=== PATIENT | female | born 1945 | race Caucasian/White ===

== ENCOUNTER 2018-03-10 07:29 | Observation (INO) ==
[2018-03-10 08:25] LABS: Basophils % 0.7 %; Eosinophils # 0.1 K/mcL (0.0-0.6); Eosinophils % 1.1 %; Hematocrit 41.5 % (35.3-44.9); Hemoglobin 14.3 g/dL (11.5-15.4); Immature Granulocytes % 0.2 % (0-4); Lymphocytes # 1.9 K/mcL (0.6-4.6); Mean Corpuscular HGB Conc 34.5 g/dL (31.6-35.5); Mean Corpuscular Hemoglobin 30.4 pg (28.0-33.3); Mean Corpuscular Volume 88.3 fL (83.0-100.0); Mean Platelet Volume 11.1 fL (9.4-12.4); Monocytes # 0.7 K/mcL (0.0-1.3); Monocytes % 11.8 %; Neutrophils # 3.4 K/mcL (1.6-8.9); Platelet Count 286 K/mcL (140-400); Red Cell Distribution Width 12.6 % (11.5-14.5); Segmented Neutrophils % 55.2 %
[2018-03-10 08:33] LABS: Activated Partial Thrombo Time 36.9 Seconds (26.0-36.0)
[2018-03-10] MEDS ORDERED: Aspirin 325 MG TABLET PO ONE (08:55)
--- NOTE | 2018-03-10 08:56 | Emergency Department Note ---
Disposition Clinical Impression: Chest pain Qualifiers: Chest pain type: precordial pain Qualified Code(s): R07.2 - Precordial pain Disposition: Admitted As Inpatient Condition: Fair Referrals: Shukri San DO [Primary Care Provider] - Extremity Problem HPI - General Chief complaint: ED General Medical Stated complaint: Left leg pain/Palpitations Time Seen by Provider: 03/10/18 08:32 Source: patient Mode of arrival: private vehicle Limitations: no limitations Nursing Notes Reviewed: Yes Vital Signs Reviewed: Yes - History of Present Illness Pt Subjective Complaint: joint pain, other (chest pain and "fluttering") Consistency: constant Injury Location: left, lower extremity, other (left arm, left upper back and left side of neck) Pain Scale: 8 Quality: aching, crushing, sharp Radiation: proximal (from left knee up the left side of the body) Improves with: rest Worsens with: walking, use Associated symptoms: Reports: chest pain (episode on Tuesday while walking up stairs - improved with rest, then returned yesterday. Has intermittent episodes of chest pain.), back pain, bowel/bladder symptoms (diarrhea x 2 days - "2 or 3 times a day"), arthralgias. Denies: shortness of breath, abdominal pain, fever , rash, change in appearance, swelling, redness Context: other (Hx of CAD, Hx of OA) - Related Data Home Medications Medication Instructions Recorded Confirmed FLUoxetine HCl [Sarafem] 10 mg PO HS 03/25/15 01/20/18 Metoprolol [Lopressor] 50 mg PO HS 03/25/15 01/20/18 Meloxicam [Mobic] 15 mg PO DAILY 12/14/15 01/20/18 Oxybutynin Chloride [Ditropan Xl] 5 mg PO DAILY 12/14/15 01/20/18 hydroCHLOROthiazide 12.5 mg PO DAILY 12/14/15 01/20/18 [Hydrochlorothiazide] Levothyroxine [Synthroid] 50 mcg PO 0601/18/18 01/20/18 Metoprolol Tartrate [Lopressor] 25 mg PO QAM 01/18/18 01/20/18 Multivitamin [One Daily 1 tab PO DAILY 01/18/18 01/20/18 Multivitamin] Oxybutynin Chloride [Ditropan Xl] 5 mg PO DAILY 01/18/18 01/20/18 Ranitidine HCl [Heartburn Relief] 150 mg PO BID 01/18/18 01/20/18 Atorvastatin Calcium [Lipitor] 80 mg PO HS 01/19/18 01/20/18 Clopidogrel [Plavix] 75 mg PO DAILY 01/19/18 01/20/18 traZODone [TraZODone] 50 mg PO HS 01/19/18 01/20/18 Allergies Allergy/AdvReac Type Severity Reaction Status Date / Time Cefaclor [From Ceclor] AdvReac Mild Rash Verified 04/02/17 23:10 All systems ED: reviewed and negative except as stated. Review of Systems: As Per HPI Constitutional: Denies: fever, chills, weakness, weight change, night sweats Cardiovascular: Reports: as per HPI, chest pain, palpitations, dyspnea on exertion ("Only on Tuesday while walking up the stairs and had the chest pain "). Denies: orthopnea, edema, syncope Respiratory: Denies: cough, dyspnea, wheezes, hemoptysis Gastrointestinal: Reports: as per HPI, diarrhea. Denies: abdominal pain, nausea , vomiting Genitourinary: Denies: dysuria Musculoskeletal: Reports: as per HPI, back pain, neck pain, arthralgia. Denies : joint swelling Neurological: Denies: headache, weakness, numbness, paresthesias, confusion, vertigo Endocrine: Reports: fatigue Hematological/Lymphatic: Denies: easy bleeding, easy bruising Past Medical History - Past Medical History Attestation: Yes The following information was validated with the patient. Source: patient Medical history: Reports: arthritis, dementia, GERD, hyperlipidemia, hypertension, myocardial infarction, RA, thyroid disease Surgical history: Reports: cataract, hysterectomy Psychiatric history: Reports: no psych history RADIO OPERATOR history: Reports: no RADIO OPERATOR history - Social History Smoking Status: Never smoker Smokeless Tobacco Status: No Alcohol use: Reports: none Drug use: Reports: none Physical Exam - General Limitations: no limitations General appearance: alert, in no apparent distress - Head Head exam: atraumatic, normocephalic, normal inspection - Eye Eye exam: Present: normal appearance, PERRL. Absent: scleral icterus, conjunctival injection, periorbital swelling - ENT ENT exam: mucous membranes moist - Neck Neck exam: Present: normal inspection, full ROM, trachea midline. Absent: tenderness - Chest Chest inspection: Present: normal inspection, symmetric chest wall rise. Absent : tenderness - Respiratory Respiratory exam: Present: normal lung sounds bilaterally. Absent: respiratory distress - Cardiovascular Cardiovascular exam: Present: regular rate, normal rhythm - Abdominal Exam Abdominal exam: Present: soft, Non-Tender. Absent: distention, mass, pulsatile mass - Extremities Exam Extremities exam: Present: normal inspection, full ROM, normal capillary refill. Absent: calf tenderness - Expanded Lower Extremity Exam Hip/Pelvis exam: Present: full ROM. Absent: tenderness, swelling Upper leg exam: Absent: tenderness Knee exam: Present: normal inspection, full ROM, tenderness, knee extension intact. Absent: swelling, ecchymosis, deformity, erythema Lower leg exam: Absent: tenderness, ecchymosis, erythema, Homans' sign Ankle exam: Present: normal inspection, full ROM. Absent: tenderness, swelling Foot/toe exam: Present: normal inspection, full ROM. Absent: tenderness, swelling Neurovascular/Tendon exam: Present: normal capillary refill, normal fine/light touch. Absent: pulse deficit, motor deficit, sensory deficit, tendon deficit, extremity cold to touch, pallor, foot drop, significant pain with passive ROM of distal joint Gait: antalgic - Back Exam Back exam: Present: normal inspection. Absent: CVA tenderness (R), CVA tenderness (L) - Neurological Exam Neurological exam: Present: alert, oriented X3, CN II-XII intact, normal gait. Absent: motor sensory deficit - Psychiatric Psychiatric exam: Present: normal affect, normal mood - Skin Skin exam: Present: warm, dry, intact, normal color Course Course Narrative: Patient presents from home for evaluation of polyarthralgia and palpitations with episodic exertional chest pain. Her EKG appears to be unchanged compared to previous. She does have history of coronary artery disease with two stents. She has had no recent illnesses and is afebrile. She describes her arthralgia as similar to her frequent flareups of arthritis pain. Her primary reason for coming to the ER was for evaluation of her chest pain and palpitations. EKG is unchanged. Labs are essentially normal with the exception of hyponatremia which is slightly better than her recent values. Chest x-ray is normal. She is currently pain-free. Vitals are stable. Hospitalist was contacted for admission. Patient has been accepted. Vital Signs Temperature 98.3 F 03/10/18 07:42 Pulse Rate 74 03/10/18 07:42 Respiratory Rate 16 03/10/18 07:42 Blood Pressure 157/91 03/10/18 07:42 O2 Sat by Pulse Oximetry 96 03/10/18 07:42 Temperature 98.3 F 03/10/18 07:42 Pulse Rate 74 03/10/18 07:42 Respiratory Rate 16 03/10/18 07:42 Blood Pressure 157/91 03/10/18 07:42 O2 Sat by Pulse Oximetry 96 03/10/18 07:42 Oxygen Delivery Oxygen Delivery Room Air Extremity Problem, Nontraumati - Medical Records Medical records reviewed: Yes I reviewed the patient's medical records. - Lab Data Lab results reviewed: Yes I reviewed the patient's lab results. Lab results narrative: Laboratory Last Values WBC 6.1 K/mcL (4.3-11.1) 03/10/18 08:10 RBC 4.70 M/mcL (3.82-4.97) 03/10/18 08:10 Hgb 14.3 g/dL (11.5-15.4) 03/10/18 08:10 Hct 41.5 % (35.3-44.9) 03/10/18 08:10 MCV 88.3 fL (83.0-100.0) 03/10/18 08:10 MCH 30.4 pg (28.0-33.3) 03/10/18 08:10 MCHC 34.5 g/dL (31.6-35.5) 03/10/18 08:10 RDW 12.6 % (11.5-14.5) 03/10/18 08:10 Plt Count 286 K/mcL (140-400) 03/10/18 08:10 MPV 11.1 fL (9.4-12.4) 03/10/18 08:10 Immature Gran % 0.2 % (0-4) 03/10/18 08:10 Seg Neutrophils % 55.2 % 03/10/18 08:10 Lymphocytes % 31.0 % 03/10/18 08:10 Monocytes % 11.8 % 03/10/18 08:10 Eosinophils % 1.1 % 03/10/18 08:10 Basophils % 0.7 % 03/10/18 08:10 Neutrophils # 3.4 K/mcL (1.6-8.9) 03/10/18 08:10 Lymphocytes # 1.9 K/mcL (0.6-4.6) 03/10/18 08:10 Monocytes # 0.7 K/mcL (0.0-1.3) 03/10/18 08:10 Eosinophils # 0.1 K/mcL (0.0-0.6) 03/10/18 08:10 Basophils # 0.0 K/mcL (0.0-0.2) 03/10/18 08:10 PT 11.0 Seconds (9.4-12.1) 03/10/18 08:10 INR 1.0 03/10/18 08:10 APTT 36.9 Seconds (26.0-36.0) H 03/10/18 08:10 Sodium 130 mEq/L (136-145) L 03/10/18 08:10 Potassium 3.6 mEq/L (3.5-5.1) 03/10/18 08:10 Chloride 95 mEq/L (98-107) L 03/10/18 08:10 Carbon Dioxide 28 mEq/L (23-29) 03/10/18 08:10 BUN 10 mg/dL (8-23) 03/10/18 08:10 Creatinine 0.92 mg/dL (0.60-1.20) 03/10/18 08:10 Est GFR ( Amer) > 60 (> 60) 03/10/18 08:10 Est GFR (Non-Af Amer) > 60 (> 60) 03/10/18 08:10 BUN/Creatinine Ratio 11 (6-26) 03/10/18 08:10 Glucose 95 mg/dL (70-105) 03/10/18 08:10 Calculated Osmolality 269 (280-300) L 03/10/18 08:10 Calcium 10.0 mg/dL (8.6-10.3) 03/10/18 08:10 Troponin I < 0.03 ng/mL (< 0.04) 03/10/18 08:10 Urine Color Yellow (Yellow) 03/10/18 09:17 Urine Clarity Clear (Clear) 03/10/18 09:17 Urine pH 7.5 pH Units (5.0-8.0) 03/10/18 09:17 Ur Specific [place] 1.009 (1.010-1.025) L 03/10/18 09:17 Urine Protein Negative mg/dL (Neg-Trace) 03/10/18 09:17 Urine Glucose (UA) Normal mg/dL (Normal) 03/10/18 09:17 Urine Ketones Negative mg/dL (Negative) 03/10/18 09:17 Urine Blood Negative (Negative) 03/10/18 09:17 Urine Nitrite Negative (Negative) 03/10/18 09:17 Urine Bilirubin Negative (Negative) 03/10/18 09:17 Urine Urobilinogen Normal mg/dL (Normal) 03/10/18 09:17 Ur Leukocyte Esterase Negative (Negative) 03/10/18 09:17 Ur Culture Indicated? NO (NO) 03/10/18 09:17 Result diagrams: 03/10/18 08:10 Lab Results 03/10/18 03/10/18 Range/Units 08:10 08:10 WBC 6.1 (4.3-11.1) K/mcL RBC 4.70 (3.82-4.97) M/mcL Hgb 14.3 (11.5-15.4) g/dL Hct 41.5 (35.3-44.9) % MCV 88.3 (83.0-100.0) fL MCH 30.4 (28.0-33.3) pg MCHC 34.5 (31.6-35.5) g/dL RDW 12.6 (11.5-14.5) % Plt Count 286 (140-400) K/mcL MPV 11.1 (9.4-12.4) fL Immature Gran % 0.2 (0-4) % Seg Neutrophils % 55.2 % Lymphocytes % 31.0 % Monocytes % 11.8 % Eosinophils % 1.1 % Basophils % 0.7 % Neutrophils # 3.4 (1.6-8.9) K/mcL Lymphocytes # 1.9 (0.6-4.6) K/mcL Monocytes # 0.7 (0.0-1.3) K/mcL Eosinophils # 0.1 (0.0-0.6) K/mcL Basophils # 0.0 (0.0-0.2) K/mcL PT 11.0 (9.4-12.1) Seconds INR 1.0 APTT 36.9 H (26.0-36.0) Seconds - Radiology Data Radiology results reviewed: Yes I reviewed the patient's radiology results. Chest X-Ray 03/10/18 07:44 IMPRESSION: No acute cardiopulmonary disease. D/ / 03/10/2018 08:45:55 [facility] Interpreting Provider: Daniel Cody MD - EKG Data EKG attestation: Yes I reviewed and interpreted this EKG. EKG shows normal: sinus rhythm Rate: normal Rhythm: NSR T wave inversions noted in: III, aVR, aVF, v1 When compared to previous EKG there are: no significant changes Interpretation: unchanged when compared to prior tracing (date), nonspecific ST- T wave changes
[2018-03-10 09:01] LABS: Troponin I < 0.03 ng/mL (< 0.04)
[2018-03-10 09:22] LABS: BUN/Creatinine Ratio 11 (6-26); Blood Urea Nitrogen 10 mg/dL (8-23); Carbon Dioxide 28 mEq/L (23-29); Chloride 95 mEq/L (98-107); Glucose 95 mg/dL (70-105); Osmolality,Calculated 269 (280-300); Potassium 3.6 mEq/L (3.5-5.1); Sodium 130 mEq/L (136-145); eGFR For Non-African Americans > 60 (> 60)
[2018-03-10 09:29] LABS: Bilirubin,Urine Negative (Negative); Blood,Urine Negative (Negative); Clarity,Urine Clear (Clear); Color,Urine Yellow (Yellow); Glucose,Urine (UA) Normal (Normal); Ketones,Urine Negative (Negative); Leukocyte Esterase,Urine Negative (Negative); Nitrite,Urine Negative (Negative); PH,Urine 7.5 pH Units (5.0-8.0); Protein,Urine Negative (Neg-Trace); Specific Gravity,Urine 1.009 (1.010-1.025); Urobilinogen,Urine Normal (Normal)
--- NOTE | 2018-03-10 12:12 | Emergency Department Note ---
Disposition Clinical Impression: Chest pain Qualifiers: Chest pain type: precordial pain Qualified Code(s): R07.2 - Precordial pain Disposition: Admitted As Inpatient Condition: Fair General Adult HPI - General Chief complaint: ED General Medical Stated complaint: Left leg pain/Palpitations Time Seen by Provider: 03/10/18 08:32 Source: patient Mode of arrival: private vehicle Limitations: no limitations - History of Present Illness Pain Scale: 8 - Related Data Home Medications Medication Instructions Recorded Confirmed FLUoxetine HCl [Sarafem] 10 mg PO HS 03/25/15 03/10/18 hydroCHLOROthiazide 12.5 mg PO DAILY 12/14/15 03/10/18 [Hydrochlorothiazide] Levothyroxine [Synthroid] [place] [address]/18/18 03/10/18 Multivitamin [One Daily 1 tab PO DAILY 01/18/18 03/10/18 Multivitamin] Oxybutynin Chloride [Ditropan Xl] 5 mg PO DAILY 01/18/18 03/10/18 Ranitidine HCl [Heartburn Relief] 150 mg PO BID 01/18/18 03/10/18 Atorvastatin Calcium [Lipitor] 80 mg PO HS 01/19/18 03/10/18 Clopidogrel [Plavix] 75 mg PO DAILY 01/19/18 03/10/18 traZODone [TraZODone] 50 mg PO HS 01/19/18 03/10/18 Acetaminophen [Tylenol] 500 mg PO BID 03/10/18 03/10/18 Albuterol Sulfate [Ventolin Hfa] 2 puff IH Q4-6H PRN 03/10/18 03/10/18 Aspirin [Adult Aspirin Regimen] 81 mg PO HS 03/10/18 03/10/18 Donepezil [Aricept] 5 mg PO HS 03/10/18 03/10/18 FLUoxetine HCl [PROzac] 20 mg PO QAM 03/10/18 03/10/18 Allergies Allergy/AdvReac Type Severity Reaction Status Date / Time Cefaclor [From Ceclor] AdvReac Mild Rash Verified 03/10/18 12:01 Constitutional: Denies: fever, chills, weakness, weight change, night sweats Cardiovascular: Reports: as per HPI, chest pain, palpitations, dyspnea on exertion ("Only on Tuesday while walking up the stairs and had the chest pain "). Denies: orthopnea, edema, syncope Respiratory: Denies: cough, dyspnea, wheezes, hemoptysis Gastrointestinal: Reports: as per HPI, diarrhea. Denies: abdominal pain, nausea , vomiting Genitourinary: Denies: dysuria Musculoskeletal: Reports: as per HPI, back pain, neck pain, arthralgia. Denies : joint swelling Neurological: Denies: headache, weakness, numbness, paresthesias, confusion, vertigo Endocrine: Reports: fatigue Hematological/Lymphatic: Denies: easy bleeding, easy bruising Past Medical History - Past Medical History Medical history: Reports: arthritis, dementia, GERD, hyperlipidemia, hypertension, myocardial infarction, RA, thyroid disease Surgical history: Reports: cataract, hysterectomy Psychiatric history: Reports: no psych history TRAIN MASTER history: Reports: no TRAIN MASTER history - Social History Smoking Status: Never smoker Smokeless Tobacco Status: No Alcohol use: Reports: none Drug use: Reports: none Physical Exam - General Limitations: no limitations General appearance: alert, in no apparent distress Course Vital Signs Temperature 98.3 F 03/10/18 07:42 Pulse Rate 74 03/10/18 07:42 Respiratory Rate 16 03/10/18 07:42 Blood Pressure 157/91 03/10/18 07:42 O2 Sat by Pulse Oximetry 96 03/10/18 07:42 Temperature 98.3 F 03/10/18 07:42 Pulse Rate 71 03/10/18 09:35 Respiratory Rate 18 03/10/18 09:35 Blood Pressure 148/81 03/10/18 09:35 O2 Sat by Pulse Oximetry 98 03/10/18 09:35 Oxygen Delivery Oxygen Delivery Room Air Medical Decision Making - Lab Data Result diagrams: 03/10/18 08:10 03/10/18 08:10 Lab Results 03/10/18 03/10/18 03/10/18 Range/Units 08:10 08:10 08:10 WBC 6.1 (4.3-11.1) K/mcL RBC 4.70 (3.82-4.97) M/mcL Hgb 14.3 (11.5-15.4) g/dL Hct 41.5 (35.3-44.9) % MCV 88.3 (83.0-100.0) fL MCH 30.4 (28.0-33.3) pg MCHC 34.5 (31.6-35.5) g/dL RDW 12.6 (11.5-14.5) % Plt Count 286 (140-400) K/mcL MPV 11.1 (9.4-12.4) fL Immature Gran % 0.2 (0-4) % Seg Neutrophils % 55.2 % Lymphocytes % 31.0 % Monocytes % 11.8 % Eosinophils % 1.1 % Basophils % 0.7 % Neutrophils # 3.4 (1.6-8.9) K/mcL Lymphocytes # 1.9 (0.6-4.6) K/mcL Monocytes # 0.7 (0.0-1.3) K/mcL Eosinophils # 0.1 (0.0-0.6) K/mcL Basophils # 0.0 (0.0-0.2) K/mcL PT 11.0 (9.4-12.1) Seconds INR 1.0 APTT 36.9 H (26.0-36.0) Seconds Sodium 130 L (136-145) mEq/L Potassium 3.6 (3.5-5.1) mEq/L Chloride 95 L (98-107) mEq/L Carbon Dioxide 28 (23-29) mEq/L BUN 10 (8-23) mg/dL Creatinine 0.92 (0.60-1.20) mg/dL Est GFR ( Amer) > 60 (> 60) Est GFR (Non-Af Amer) > 60 (> 60) BUN/Creatinine Ratio 11 (6-26) Glucose 95 (70-105) mg/dL Calculated Osmolality 269 L (280-300) Calcium 10.0 (8.6-10.3) mg/dL Troponin I < 0.03 (< 0.04) ng/mL Urine Color (Yellow) Urine Clarity (Clear) Urine pH (5.0-8.0) pH Units Ur Specific [place] (1.010-1.025) Urine Protein (Neg-Trace) mg/dL Urine Glucose (UA) (Normal) mg/dL Urine Ketones (Negative) mg/dL Urine Blood (Negative) Urine Nitrite (Negative) Urine Bilirubin (Negative) Urine Urobilinogen (Normal) mg/dL Ur Leukocyte Esterase (Negative) Ur Culture Indicated? (NO) 03/10/18 Range/Units 09:17 WBC (4.3-11.1) K/mcL RBC (3.82-4.97) M/mcL Hgb (11.5-15.4) g/dL Hct (35.3-44.9) % MCV (83.0-100.0) fL MCH (28.0-33.3) pg MCHC (31.6-35.5) g/dL RDW (11.5-14.5) % Plt Count (140-400) K/mcL MPV (9.4-12.4) fL Immature Gran % (0-4) % Seg Neutrophils % % Lymphocytes % % Monocytes % % Eosinophils % % Basophils % % Neutrophils # (1.6-8.9) K/mcL Lymphocytes # (0.6-4.6) K/mcL Monocytes # (0.0-1.3) K/mcL Eosinophils # (0.0-0.6) K/mcL Basophils # (0.0-0.2) K/mcL PT (9.4-12.1) Seconds INR APTT (26.0-36.0) Seconds Sodium (136-145) mEq/L Potassium (3.5-5.1) mEq/L Chloride (98-107) mEq/L Carbon Dioxide (23-29) mEq/L BUN (8-23) mg/dL Creatinine (0.60-1.20) mg/dL Est GFR ( Amer) (> 60) Est GFR (Non-Af Amer) (> 60) BUN/Creatinine Ratio (6-26) Glucose (70-105) mg/dL Calculated Osmolality (280-300) Calcium (8.6-10.3) mg/dL Troponin I (< 0.04) ng/mL Urine Color Yellow (Yellow) Urine Clarity Clear (Clear) Urine pH 7.5 (5.0-8.0) pH Units Ur Specific [place] 1.009 L (1.010-1.025) Urine Protein Negative (Neg-Trace) mg/dL Urine Glucose (UA) Normal (Normal) mg/dL Urine Ketones Negative (Negative) mg/dL Urine Blood Negative (Negative) Urine Nitrite Negative (Negative) Urine Bilirubin Negative (Negative) Urine Urobilinogen Normal (Normal) mg/dL Ur Leukocyte Esterase Negative (Negative) Ur Culture Indicated? NO (NO) Attestation Statement - Attestation Attestation: I examined this patient and my medical decision-making was reviewed with the TIME MOTION ANALYST/PA/Advanced Practice Nurse/Resident Physician. I agree with the documented findings, disposition and treatment plan as described except to the extent set forth below. I did see the patient and spoke with her and the concern is her chest discomfort. She also has palpitations. Does have some EKG changes which were present on the previous EKG. Will be admitted. The patient would like to be admitted and is comfortable and appreciative of this approach. Will be followed closely and monitored here in the hospital. At this point she is bright and alert and in no distress. [id number]
[2018-03-10] MEDS ORDERED: Naloxone 0.4 MG/ML INJ IVP PRN (15:49)
--- NOTE | 2018-03-10 16:10 | Internal Med History&Physical ---
Date of Encounter: 03/10/18 Time of Encounter: 15:30 Internal Medicine - H&P: HPI Chief complaint: Chest pain Admitted From: Emergency Dept Plans for Post Hospital Care: Home History of present illness: Ms. Reveles is a 72 year old female patient with a history of coronary artery disease who and prior PCI with stents who presented to the ER with complaints of chest pain. Pain has been going on for 2 weeks and progressively worsening. She reports that the pain usually comes on when she is exerting or walking. It did not resolve spontaneously. Pain is located in the lower center part of her chest in the substernal space and is like a pressure sensation. She does have some shortness of breath associated with it. No orthopnea. She gets occasional PND. No nausea or vomiting. No abdominal pain. She reports that her last stent was 2-3 years back. She has been on Plavix. 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 So she decided to come to the ER today. She did not have chest pain by the time she came to the ER. Patient reports that she has a history of arthritis and has been having a flareup of arthritis everywhere including her small joints and her spine. She was not diagnosed previously with any specific kind of arthritis. She takes Tylenol for her pain. Past Med Surg Social Fam HX - Past Medical History Attestation: Yes The following information was validated with the patient. Source: patient Medical history: arthritis, dementia, GERD, hyperlipidemia, hypertension, myocardial infarction, RA, thyroid disease Additional medical history: sleep apnea, CO last 2011 Psychiatric history: no psych history - Past Surgical History Surgical History: cataract, hysterectomy Additional surgical history: cardiac stent x4 - Social History Smoking Status: Never smoker Smokeless Tobacco Status: No Alcohol use: none Drug use: none - Family History Mother Adopted: No Living Status: Hx Family Cardiac Disorders: Yes Internal Medicine - H&P: Meds FLUoxetine HCl [Sarafem] 10 mg PO HS 03/25/15 [History] hydroCHLOROthiazide [Hydrochlorothiazide] 12.5 mg PO DAILY 12/14/15 [History] Levothyroxine [Synthroid] 50 mcg PO 0630 01/18/18 [History] Multivitamin [One Daily Multivitamin] 1 tab PO DAILY 01/18/18 [History] Oxybutynin Chloride [Ditropan Xl] 5 mg PO DAILY 01/18/18 [History] Ranitidine HCl [Heartburn Relief] 150 mg PO BID 01/18/18 [History] Atorvastatin Calcium [Lipitor] 80 mg PO HS 01/19/18 [History] Clopidogrel [Plavix] 75 mg PO DAILY 01/19/18 [History] traZODone [TraZODone] 50 mg PO HS 01/19/18 [History] Acetaminophen [Tylenol] 500 mg PO BID 03/10/18 [History] Albuterol Sulfate [Ventolin Hfa] 2 puff IH Q4-6H PRN 03/10/18 [History] Aspirin [Adult Aspirin Regimen] 81 mg PO HS 03/10/18 [History] Donepezil [Aricept] 5 mg PO HS 03/10/18 [History] FLUoxetine HCl [PROzac] 20 mg PO QAM 03/10/18 [History] 3 Allergy/AdvReac Type Severity Reaction Status Date / Time [facility] AdvReac Mild Rash Verified 03/10/18 12:01 All Systems PM: A 10-system review of systems was performed and is negative for pertinent findings except as documented above in the HPI. - Constitutional Constitutional: no chills, no fever(s), no night sweats - EENT Eyes: no change in vision, no discharge, no pain, no photophobia Ears: no ear discharge, no ear pain, no tinnitus Nose, mouth and throat: no dysphagia, no nasal discharge, no neck pain, no sore throat - Cardiovascular Cardiovascular ROS IM: chest pain, dyspnea, edema, no diaphoresis, no lightheadedness, no palpitations, no syncope - Respiratory Respiratory: no cough, no dyspnea, no wheezing, no excessive phlegm production - Gastrointestinal Gastrointestinal: no abdominal pain, no diarrhea, no hematemesis, no hematochezia, no melena, no nausea, no vomiting - Genitourinary Genitourinary: no change in urinary stream, no dysuria, no flank pain, no hematuria - Musculoskeletal Musculoskeletal ROS IM: arthralgias, no numbness, no tingling - Constitutional Vitals: Temp Pulse Resp BP Pulse Ox 98.3 F 76 15 123/71 96 03/10/18 15:54 03/10/18 15:54 03/10/18 15:54 03/10/18 15:54 03/10/18 15:54 General appearance: Present: cooperative, mild distress, A&O X 3, answers questions appropriately Exam: . - Neck Neck exam general surgery: Present: supple, trachea midline. Absent: lymphadenopathy - Respiratory Respiratory exam: Present: CTAB. Absent: accessory muscle use, rales, rhonchi, wheezes - Cardiovascular Cardiovascular exam: Present: RRR, +S1, +S2. Absent: diastolic murmur, gallop, rubs, systolic murmur Additional comments: Central chest wall tenderness present - GI/Abdominal GI/Abdominal exam: Present: normal bowel sounds, soft, no peritoneal signs. Absent: distended, tenderness - Extremities Exam Extremities exam: Present: warm, radial pulses palpable and symmetrical. Absent : calf tenderness, cyanotic, pedal edema - Neurological Exam Neurological exam: Present: CN II-XII intact, oriented X3, no focal deficits. Absent: facial droop, speech deficit - Skin Skin exam: Present: dry, intact Internal Med - H&P Results - Labs CBC & Chem 7: 03/10/18 08:10 03/10/18 08:10 - Assessment and plan (1) Chest pain Current Visit: Yes Status: Acute Assessment and plan: Issue and having chest pain in the central lower substernal space. Reproducible with palpation. Patient does have a history of coronary artery disease and is at risk for ACS. Will monitor with telemetry. EKG shows Q waves in septal leads suggestive of prior CO. No acute ST segment changes. Troponins have been negative so far. Will trend troponins and if they are negative scheduled patient for stress test in morning. Check lipid profile. Continue home medications including Plavix. Qualifiers: Chest pain type: intercostal pain Qualified Code(s): R07.82 - Intercostal pain (2) Coronary artery disease Current Visit: Yes Status: Chronic Assessment and plan: With acute chest pain worsening with exertion. Continue home medications. Stress test in a.m. if troponins are negative. Qualifiers: Coronary Disease-Associated Artery/Lesion type: [place] artery [place] vs. transplanted heart: [place] heart Associated angina: with stable angina Qualified Code(s): I25.118 - Atherosclerotic heart disease of [place] coronary artery with other forms of angina pectoris (3) Hyperlipidemia Current Visit: Yes Status: Chronic Assessment and plan: Continue Lipitor Qualifiers: Hyperlipidemia type: mixed hyperlipidemia Qualified Code(s): E78.2 - Mixed hyperlipidemia (4) Hypertension Current Visit: Yes Status: Chronic Assessment and plan: Blood pressure was elevated earlier today but has since improved. Will resume home medications. Continue to monitor blood pressure closely. Qualifiers: Hypertension type: essential hypertension Qualified Code(s): I10 - Essential (primary) hypertension (5) Arthritis Current Visit: Yes Status: Acute Assessment and plan: Patient reports arthritis pain in multiple joints. Not previously diagnosed with any specific kind of arthritis. Will check ESR CRP, anti-CCP and JACQUELIN. - Time Spent With Patient Total time spent is greater than 50% in coordination of care (as documented) at patient's floor/unit and/or counseling patient:
[2018-03-10] MEDS: 0.9 % Sodium Chloride 1,000 ML IVC SCH (16:22)
[2018-03-10] MEDS: Famotidine 20 MG TABLET PO SCH (20:12)
[2018-03-10] MEDS ORDERED: Aspirin Enteric Coated 81 MG Tablet PO SCH (21:00)
[2018-03-10] MEDS ORDERED: traZODone 50 MG TABLET PO SCH (21:00)
[2018-03-10] MEDS ORDERED: FLUoxetine HCl 10 MG CAPSULE PO SCH (21:00)
[2018-03-11 04:43] LABS: Basophils % 0.5 %; Eosinophils # 0.1 K/mcL (0.0-0.6); Eosinophils % 2.2 %; Hematocrit 39.4 % (35.3-44.9); Hemoglobin 13.4 g/dL (11.5-15.4); Immature Granulocytes % 0.2 % (0-4); Lymphocytes # 2.8 K/mcL (0.6-4.6); Lymphocytes % 44.3 %; Mean Corpuscular Hemoglobin 29.9 pg (28.0-33.3); Mean Corpuscular Volume 87.9 fL (83.0-100.0); Mean Platelet Volume 11.6 fL (9.4-12.4); Monocytes # 0.8 K/mcL (0.0-1.3); Monocytes % 12.7 %; Neutrophils # 2.5 K/mcL (1.6-8.9); Platelet Count 282 K/mcL (140-400); Red Blood Count 4.48 M/mcL (3.82-4.97); Red Cell Distribution Width 12.6 % (11.5-14.5); Segmented Neutrophils % 40.1 %
[2018-03-11 05:01] LABS: BUN/Creatinine Ratio 12 (6-26); Blood Urea Nitrogen 9 mg/dL (8-23); Carbon Dioxide 26 mEq/L (23-29); Chloride 100 mEq/L (98-107); Chol/HDL Ratio 2.7 (0-4.9); Cholesterol 153 mg/dL (< 200); Glucose 91 mg/dL (70-105); HDL Cholesterol 56 mg/dL (40-59); LDL Cholesterol,Calculated 78 mg/dL (0-99); Osmolality,Calculated 270 (280-300); Potassium 3.3 mEq/L (3.5-5.1); Sodium 131 mEq/L (136-145); Triglycerides 95 mg/dL (< 150); eGFR For Non-African Americans > 60 (> 60)
[2018-03-11] MEDS: 0.9 % Sodium Chloride 1,000 ML IVC SCH (05:35)
[2018-03-11] MEDS ORDERED: Regadenoson 0.4 MG/5 ML SYRINGE IVP ONE (05:47)
[2018-03-11] MEDS ORDERED: FLUoxetine 20 MG CAPSULE PO SCH (09:00)
[2018-03-11] MEDS ORDERED: hydroCHLOROthiazide 25 MG TABLET PO SCH (09:00)
[2018-03-11] MEDS ORDERED: Multivit/Ca/Min/Fe/FA 1 TAB TABLET PO SCH (09:00)
[2018-03-11] MEDS: Famotidine 20 MG TABLET PO SCH (10:28)
[2018-03-11 11:47] VITALS: BP 135/61
--- NOTE | 2018-03-11 14:56 | Discharge Summary ---
- NOTES TO OUTPATIENT PROVIDER Notes to Outpatient Provider: 72-year-old female patient who was hospitalized here with chest pain. She has history of coronary artery disease. As such she was monitored with telemetry and her troponins were trended. They have been negative so far. Patient underwent cardiac stress test today and is negative. She did have reproducible chest pain yesterday and has been having a flareup of her arthritis. Recommend follow-up with PCP and possibly start medication to treat her arthritis and also work it up further. Orders not resulted at time of discharge: Pending orders 03/11/18 07:00 NM martinez perf SPECT multi [NM] Routine Date of Encounter: 03/11/18 Time of Encounter: 16:03 - Discharge Diagnosis (1) Chest pain Priority: Primary Status: Acute Qualifiers: Chest pain type: intercostal pain Qualified Code(s): R07.82 - Intercostal pain (2) Coronary artery disease Priority: Secondary Status: Chronic Qualifiers: Coronary Disease-Associated Artery/Lesion type: [place] artery [place] vs. transplanted heart: [place] heart Associated angina: with stable angina Qualified Code(s): I25.118 - Atherosclerotic heart disease of [place] coronary artery with other forms of angina pectoris (3) Hyperlipidemia Priority: Secondary Status: Chronic Qualifiers: Hyperlipidemia type: mixed hyperlipidemia Qualified Code(s): E78.2 - Mixed hyperlipidemia (4) Hypertension Priority: Secondary Status: Chronic Qualifiers: Hypertension type: essential hypertension Qualified Code(s): I10 - Essential (primary) hypertension (5) Arthritis Priority: Secondary Status: Acute Hospital course: Ms. Reveles is a 72 year old female patient who was hospitalized here with chest pain. She has history of coronary artery disease. As such she was monitored with telemetry and her troponins were trended. They have been negative so far. Patient underwent cardiac stress test today and is negative. She did have reproducible chest pain yesterday and has been having a flareup of her arthritis. Recommend follow-up with PCP and possibly start medication to treat her arthritis and also work it up further. Her pain is now subsided and she feels much better. Will be discharged home today. Discharge discussed with: patient, nurse - Time Spent with Patient Total time spent providing and/or coordinating discharge services: Less than 30 minutes (20 min) - Discharge Medications Home Medications: FLUoxetine HCl [Sarafem] 10 mg PO HS 10/06/15 [History] hydroCHLOROthiazide [Hydrochlorothiazide] 12.5 mg PO DAILY 12/14/15 [History] Levothyroxine [Synthroid] 50 mcg PO 0601/18/18 [History] Multivitamin [One Daily Multivitamin] 1 tab PO DAILY 01/18/18 [History] Oxybutynin Chloride [Ditropan Xl] 5 mg PO DAILY 01/18/18 [History] Ranitidine HCl [Heartburn Relief] 150 mg PO BID 01/18/18 [History] Atorvastatin Calcium [Lipitor] 80 mg PO HS 01/19/18 [History] Clopidogrel [Plavix] 75 mg PO DAILY 01/19/18 [History] traZODone [TraZODone] 50 mg PO HS 01/19/18 [History] Acetaminophen [Tylenol] 500 mg PO BID 03/10/18 [History] Albuterol Sulfate [Ventolin Hfa] 2 puff IH Q4-6H PRN 03/10/18 [History] Aspirin [Adult Aspirin Regimen] 81 mg PO HS 03/10/18 [History] Donepezil [Aricept] 5 mg PO HS 03/10/18 [History] FLUoxetine HCl [Prozac] 20 mg PO QAM 03/10/18 [History] Allergies/Adverse Reactions: 3 Allergy/AdvReac Type Severity Reaction Status Date / Time Cefaclor [From Cecl[facility]] AdvReac Mild Rash Verified 03/10/18 12:01 Date of admission: 03/10/18 11:52 Primary care physician: Alejo San DO Discharging clinician: Maria Esther Velazquez Anticipated date of discharge: 03/11/18 - Constitutional Vitals: Temp Pulse Resp BP Pulse Ox 97.9 F 73 16 135/61 96 03/11/18 11:46 03/11/18 11:46 03/11/18 11:46 03/11/18 11:46 03/11/18 11:46 General appearance: Present: cooperative, mild distress, A&O X 3, answers questions appropriately Exam: . - Respiratory Respiratory exam: Present: CTAB. Absent: accessory muscle use, rales, rhonchi, wheezes - Cardiovascular Cardiovascular exam: Present: RRR, +S1, +S2. Absent: diastolic murmur, gallop, rubs, systolic murmur - Patient Status Disposition: Home, Self-Care Condition: Good Functional capacity at discharge: independent ambulation Overall status at discharge: patient is progressing back to baseline - Discharge Instructions Instructions: Chest Pain (DC) Follow Up With: Shukri San DO [Primary Care Provider] - (Follow up appointment requested in 7-10 days. ) Forms: ED Satisfaction Letter, Work/School Release - Diet and Activity Activity: increase activity as tolerated Diet: low fat, low cholesterol, low salt diet
--- NOTE | 2018-03-12 14:58 | Electrocardiograph Report ---
[place] [facility] Test Date: 2018-03-10 Pat Name: Stephanie Reveles Department: [id number] Room: 3B12 Gender: F Inspector Watch Assembly: : 1945 Requested By: Valdemar Melendez Order Number: [id number] Reading MD: Gasper Olea Measurements Intervals [place] Rate: 75 P: 61 [place]: 193 QRS: 52 QRSD: 76 T: 29 QT: 398 QTc: 426 Interpretive Statements SINUS RHYTHM SEPTAL MYOCARDIAL INFARCTION, OF INDETERMINATE AGE Electronically Signed On 03-12-2018 14:56:24 EDT by Gasper Olea
== END 2018-03-11 17:02 | disposition home or self-care (01) ==
LOC: 3BNU 07:29 → EMEROOARM 07:29 → 3BNU 12:50
PROVIDERS: ADMIT Internal Medicine; ATTEND Internal Medicine